=== PATIENT | female | born 1980 | race Caucasian/White ===

== ENCOUNTER 2017-07-27 20:19 | Day surgery (SDC) | payer BC, OTHER ==
[2017-07-27] MEDS ORDERED: Sodium Chloride 0.9% 1,000 ML IV ONE (20:41)
[2017-07-27] MEDS ORDERED: Ondansetron 4 MG/2 ML SDV IVPUSH ONE (20:41)
--- NOTE | 2017-07-27 20:46 | EDM.PDOC ---
ED HPI GENERAL MEDICAL PROBLEM - General Chief Complaint: Abdominal Pain Stated Complaint: PT HAS BODY PAIN Time Seen by Provider: 07/27/17 20:40 Source of Information: Reports: Patient History Limitations: Reports: No Limitations - History of Present Illness INITIAL COMMENTS - FREE TEXT/NARRATIVE: HISTORY AND PHYSICAL: History of present illness: Patient is a 36-year-old female who presents to the emergency room with complaints of nausea, vomiting, abdominal pain, chest pain and shortness of breath since last night. States the symptoms have gradually got worse since last night. Denies any recent illness Review of systems: As per history of present illness and below otherwise all systems reviewed and negative. Past medical history: As per history of present illness and as reviewed below otherwise noncontributory. Surgical history: As per history of present illness and as reviewed below otherwise noncontributory. Social history: No reported history of drug or alcohol abuse. Family history: As per history of present illness and as reviewed below otherwise noncontributory. Physical exam: Gen.: Developed and well-nourished 36-year-old female. Alert and oriented. HEENT: Atraumatic, normocephalic, pupils reactive, negative for conjunctival pallor or scleral icterus, mucous membranes moist, throat clear, neck supple, nontender, trachea midline. Lungs: Clear to auscultation, breath sounds equal bilaterally, chest nontender. Heart: S1S2, regular rate and rhythm Abdomen: Soft, nondistended, nontender. Negative for masses or hepatosplenomegaly. Negative for costovertebral tenderness. Pelvis: Stable nontender. Genitourinary: Deferred. Rectal: Deferred. Extremities: Atraumatic, negative for cords or calf pain. Neurovascular unremarkable. Neuro: Awake, alert, oriented. Cranial nerves II through XII unremarkable. Cerebellum unremarkable. Motor and sensory unremarkable throughout. Exam nonfocal. Patient has a white count of 15, and will order abdominal/pelvis CT at this time. Patient states that her abdominal pain has improved since receiving her IV fluids and Zofran. Her blood pressure is in the 90s over 50s after receiving an IV bolus. She tells the nursing staff that this is normal for her and has happened in the past. Part was given to Dr. Mondragon at [id number]. Dr Shields was consulted and he knows about the case. He states he is on his way in to evaluate the patient. The patient was made aware of her appendicitis with impending surgery. Patient states her pain as a 1 out of 10 at this time. She declines any additional pain medication. He is aware to remain nothing by mouth. Diagnostics: CBC, CMP, amylase, lipase, troponin, EKG, UA, urine Therapeutics: IV fluid, Zofran Impression: Abdominal pain Appendicitis Plan: Under the care of Definitive disposition and diagnosis as appropriate pending reevaluation and review of above. Duration: Day(s): Location: Reports: Abdomen chest Pain Score (Numeric/FACES): 7 abdomen Pain Score (Numeric/FACES): 7 - Related Data Allergies Allergy/AdvReac Type Severity Reaction Status Date / Time No Known Allergies Allergy Verified 07/27/17 20:31 Home Meds: Home Meds . 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 ED EXAM, GI/ABD - Physical Exam Exam: See Below (See dictation) Course - Vital Signs Last Recorded V/S: Last Vital Signs Temp 37.4 C 07/27/17 20:19 Pulse 73 07/27/17 22:01 Resp 16 07/27/17 22:00 BP 92/50 L 07/27/17 22:01 Pulse Ox 100 07/27/17 22:00 - Orders/Labs/Meds Orders: Active Orders 24 hr Category Date Time Status EKG Documentation Completion [RC] STAT Care 07/27/17 20:41 Active Abdomen Pelvis w Cont [CT] Stat Exams 07/27/17 21:46 Ordered Chest 1V Frontal [CR] Stat Exams 07/27/17 20:46 Taken Sodium Chloride 0.9% [Normal Saline] 1,000 ml Med 07/27/17 22:00 Active IV ASDIRECTED Medication Orders Sodium Chloride (Normal Saline) 1,000 mls @ 200 mls/hr IV ASDIRECTED KHALIF Last Infusion: 07/27/17 22:01 Dose: 999 mls/hr Admin: 07/27/17 21:50 Dose: 200 mls/hr Labs: Laboratory Tests 07/27/17 07/27/17 07/27/17 Range/Units 20:40 20:40 21:20 WBC 15.09 H (4.0-11.0) K/uL RBC 4.82 (4.30-5.90) M/uL Hgb 12.7 (12.0-16.0) g/dL Hct 38.4 (36.0-46.0) % MCV 79.7 L (80.0-98.0) fL MCH 26.3 L (27.0-32.0) pg MCHC 33.1 (31.0-37.0) g/dL RDW Std Deviation 39.2 (28.0-62.0) fl RDW Coeff of Ever 14 (11.0-15.0) % Plt Count 391 (150-400) K/uL MPV 9.70 (7.40-12.00) fL Neut % (Auto) 82.2 H (48.0-80.0) % Lymph % (Auto) 12.3 L (16.0-40.0) % [place] % (Auto) 5.2 (0.0-15.0) % Eos % (Auto) 0.1 (0.0-7.0) % Baso % (Auto) 0.2 (0.0-1.5) % Neut # (Auto) 12.4 H (1.4-5.7) K/uL Lymph # (Auto) 1.9 (0.6-2.4) K/uL [place] # (Auto) 0.8 (0.0-0.8) K/uL Eos # (Auto) 0.0 (0.0-0.7) K/uL Baso # (Auto) 0.0 (0.0-0.1) K/uL Nucleated RBC % 0.0 /100WBC Nucleated RBCs # 0 K/uL Sodium 138 (136-146) mmol/L Potassium 3.6 (3.5-5.1) mmol/L Chloride 105 (98-110) mmol/L Carbon Dioxide 21 (21-31) mmol/L BUN 8 (6.0-23.0) mg/dL Creatinine 0.8 (0.6-1.5) mg/dL Est Cr Clr Drug Dosing TNP Estimated GFR (MDRD) > 60.0 ml/min Glucose 126 H (60-110) mg/dL Calcium 10.3 (8.8-10.8) mg/dL Total Bilirubin 0.6 (0.1-1.5) mg/dL AST 19 (5-40) IU/L ALT 19 (8-54) IU/L Alkaline Phosphatase 84 (40-150) Troponin I < 0.10 (0.0-0.29) NG/ML Total Protein 8.5 H (6.0-8.0) g/dL Albumin 4.3 (3.5-5.0) g/dL Globulin 4.2 H (2.0-3.5) g/dL Albumin/Globulin Ratio 1.0 L (1.3-2.8) Amylase 84 (10-90) U/L Lipase 54 (7-80) U/L Urine Color Urine Appearance Urine pH (5.0-8.0) Ur Specific [place] (1.001-1.035) Urine Protein (NEGATIVE) mg/dL Urine Glucose (UA) (NEGATIVE) mg/dL Urine Ketones (NEGATIVE) mg/dL Urine Occult Blood (NEGATIVE) Urine Nitrite (NEGATIVE) Urine Bilirubin (NEGATIVE) Urine Urobilinogen (<2.0) EU/dL Ur Leukocyte Esterase (NEGATIVE) Urine RBC (0-2/HPF) Urine WBC (0-5/HPF) Ur Epithelial Cells (NONE-FEW) Urine Bacteria (NEGATIVE) Urine HCG, Qual NEGATIVE (NEGATIVE) 07/27/17 Range/Units 21:20 WBC (4.0-11.0) K/uL RBC (4.30-5.90) M/uL Hgb (12.0-16.0) g/dL Hct (36.0-46.0) % MCV (80.0-98.0) fL MCH (27.0-32.0) pg MCHC (31.0-37.0) g/dL RDW Std Deviation (28.0-62.0) fl RDW Coeff of Ever (11.0-15.0) % Plt Count (150-400) K/uL MPV (7.40-12.00) fL Neut % (Auto) (48.0-80.0) % Lymph % (Auto) (16.0-40.0) % Bath % (Auto) (0.0-15.0) % Eos % (Auto) (0.0-7.0) % Baso % (Auto) (0.0-1.5) % Neut # (Auto) (1.4-5.7) K/uL Lymph # (Auto) (0.6-2.4) K/uL [place] # (Auto) (0.0-0.8) K/uL Eos # (Auto) (0.0-0.7) K/uL Baso # (Auto) (0.0-0.1) K/uL Nucleated RBC % /100WBC Nucleated RBCs # K/uL Sodium (136-146) mmol/L Potassium (3.5-5.1) mmol/L Chloride (98-110) mmol/L Carbon Dioxide (21-31) mmol/L BUN (6.0-23.0) mg/dL Creatinine (0.6-1.5) mg/dL Est Cr Clr Drug Dosing Estimated GFR (MDRD) ml/min Glucose (60-110) mg/dL Calcium (8.8-10.8) mg/dL Total Bilirubin (0.1-1.5) mg/dL AST (5-40) IU/L ALT (8-54) IU/L Alkaline Phosphatase (40-150) Troponin I (0.0-0.29) NG/ML Total Protein (6.0-8.0) g/dL Albumin (3.5-5.0) g/dL Globulin (2.0-3.5) g/dL Albumin/Globulin Ratio (1.3-2.8) Amylase (10-90) U/L Lipase (7-80) U/L Urine Color YELLOW Urine Appearance CLEAR Urine pH 8.5 H (5.0-8.0) Ur Specific [place] 1.020 (1.001-1.035) Urine Protein NEGATIVE (NEGATIVE) mg/dL Urine Glucose (UA) NEGATIVE (NEGATIVE) mg/dL Urine Ketones >=80 (NEGATIVE) mg/dL Urine Occult Blood NEGATIVE (NEGATIVE) Urine Nitrite NEGATIVE (NEGATIVE) Urine Bilirubin NEGATIVE (NEGATIVE) Urine Urobilinogen 0.2 (<2.0) EU/dL Ur Leukocyte Esterase NEGATIVE (NEGATIVE) Urine RBC 0-2 (0-2/HPF) Urine WBC 1-2 (0-5/HPF) Ur Epithelial Cells FEW (NONE-FEW) Urine Bacteria FEW (NEGATIVE) Urine HCG, Qual (NEGATIVE) Meds: Medications Generic Name Dose Route Start Last Admin Trade Name Freq PRN Reason Stop Dose Admin Sodium Chloride 1,000 mls @ 200 mls/hr 07/27/17 22:00 07/27/17 22:01 Normal Saline IV 999 mls/hr ASDIRECTED KHALIF Infusion Discontinued Medications Generic Name Dose Route Start Last Admin Trade Name Freq PRN Reason Stop Dose Admin Sodium Chloride 1,000 mls @ 999 mls/hr 07/27/17 20:41 07/27/17 20:48 Normal Saline IV 07/27/17 21:41 999 mls/hr STAT ONE Administration Iopamidol 100 ml 07/27/17 22:23 07/27/17 22:23 Isovue Multipack-370 (76%) IVPUSH 07/27/17 22:24 100 ml ONETIME STA Administration Ondansetron HCl 4 mg 07/27/17 20:41 07/27/17 20:53 Zofran IVPUSH 07/27/17 20:42 4 mg ONETIME ONE Administration Departure - Departure Time of Disposition: 22:50 Disposition: Still A Patient 30 Clinical Impression: Appendicitis Qualifiers: Appendicitis type: acute appendicitis Acute appendicitis type: unspecified acute appendicitis type Qualified Code(s): K35.80 - Unspecified acute appendicitis - Discharge Information Referrals: PCP,None [Primary Care Provider] - Forms: ED Department Discharge - My Orders Last 24 Hours: My Active Orders 07/27/17 20:41 EKG Documentation Completion [RC] STAT 07/27/17 20:46 Chest 1V Frontal [CR] Stat 07/27/17 21:46 Abdomen Pelvis w Cont [CT] Stat 07/27/17 22:00 Sodium Chloride 0.9% [Normal Saline] 1,000 ml IV ASDIRECTED - Assessment/Plan Last 24 Hours: My Active Orders 07/27/17 20:41 EKG Documentation Completion [RC] STAT 07/27/17 20:46 Chest 1V Frontal [CR] Stat 07/27/17 21:46 Abdomen Pelvis w Cont [CT] Stat 07/27/17 22:00 Sodium Chloride 0.9% [Normal Saline] 1,000 ml IV ASDIRECTED
[2017-07-27 21:13] LABS: CHLORIDE,CL 105 mmol/L (98-110); SODIUM,NA 138 mmol/L (136-146)
[2017-07-27] MEDS ORDERED: Sodium Chloride 0.9% 1,000 ML IV SCH (22:00)
[2017-07-27] MEDS ORDERED: Iopamidol 755 MG/ML 500 ML Multipack Bottle IVPUSH STA (22:23)
[2017-07-27] MEDS ORDERED: cefOXitin 2 GM in Premix Bag 1 BAG IV ONE (23:30)
[2017-07-27] MEDS ORDERED: Lactated Ringers 1,000 ML IV SCH (23:30)
[2017-07-27] MEDS ORDERED: cefOXitin 0 ML ONE (23:42)
--- NOTE | 2017-07-27 23:59 | PCM.PREANE ---
Preanesthetic Assessment - Anesthesia/Transfusion/Family Hx Anesthesia History: No Prior Anesthesia - Review of Systems General: No Symptoms Pulmonary: No Symptoms Cardiovascular: No Symptoms Gastrointestinal: No Symptoms Neurological: No Symptoms Other: Reports: None - Physical Assessment Pulse: 76 O2 Sat by Pulse Oximetry: 100 Respiratory Rate: 16 Blood Pressure: 92/48 Vital Signs: Last Vital Signs Temp 99.3 F 07/27/17 20:19 Pulse 73 07/27/17 22:01 Resp 16 07/27/17 22:00 BP 92/50 L 07/27/17 22:01 Pulse Ox 100 07/27/17 22:00 Height: 5 ft 8 in Weight: 64 kg ASA Class: 1E Mental Status: Alert & Oriented x3 Airway Class: Mallampati = 2 Dentition: Reports: Normal Dentition Thyro-Mental Finger Breadths: 3 Mouth Opening Finger Breadths: 3 ROM/Head Extension: Full Lungs: Clear to Auscultation, Normal Respiratory Effort Cardiovascular: Regular Rate, Regular Rhythm - Lab Values: Laboratory Last Values WBC 15.09 K/uL (4.0-11.0) H 07/27/17 20:40 RBC 4.82 M/uL (4.30-5.90) 07/27/17 20:40 Hgb 12.7 g/dL (12.0-16.0) 07/27/17 20:40 Hct 38.4 % (36.0-46.0) 07/27/17 20:40 MCV 79.7 fL (80.0-98.0) L 07/27/17 20:40 MCH 26.3 pg (27.0-32.0) L 07/27/17 20:40 MCHC 33.1 g/dL (31.0-37.0) 07/27/17 20:40 RDW Std Deviation 39.2 fl (28.0-62.0) 07/27/17 20:40 RDW Coeff of Ever 14 % (11.0-15.0) 07/27/17 20:40 Plt Count 391 K/uL (150-400) 07/27/17 20:40 MPV 9.70 fL (7.40-12.00) 07/27/17 20:40 Neut % (Auto) 82.2 % (48.0-80.0) H 07/27/17 20:40 Lymph % (Auto) 12.3 % (16.0-40.0) L 07/27/17 20:40 [place] % (Auto) 5.2 % (0.0-15.0) 07/27/17 20:40 Eos % (Auto) 0.1 % (0.0-7.0) 07/27/17 20:40 Baso % (Auto) 0.2 % (0.0-1.5) 07/27/17 20:40 Neut # (Auto) 12.4 K/uL (1.4-5.7) H 07/27/17 20:40 Lymph # (Auto) 1.9 K/uL (0.6-2.4) 07/27/17 20:40 [place] # (Auto) 0.8 K/uL (0.0-0.8) 07/27/17 20:40 Eos # (Auto) 0.0 K/uL (0.0-0.7) 07/27/17 20:40 Baso # (Auto) 0.0 K/uL (0.0-0.1) 07/27/17 20:40 Nucleated RBC % 0.0 /100WBC 07/27/17 20:40 Nucleated RBCs # 0 K/uL 07/27/17 20:40 Sodium 138 mmol/L (136-146) 07/27/17 20:40 Potassium 3.6 mmol/L (3.5-5.1) 07/27/17 20:40 Chloride 105 mmol/L (98-110) 07/27/17 20:40 Carbon Dioxide 21 mmol/L (21-31) 07/27/17 20:40 BUN 8 mg/dL (6.0-23.0) 07/27/17 20:40 Creatinine 0.8 mg/dL (0.6-1.5) 07/27/17 20:40 Est Cr Clr Drug Dosing TNP 07/27/17 20:40 Estimated GFR (MDRD) > 60.0 ml/min 07/27/17 20:40 Glucose 126 mg/dL (60-110) H 07/27/17 20:40 Calcium 10.3 mg/dL (8.8-10.8) 07/27/17 20:40 Total Bilirubin 0.6 mg/dL (0.1-1.5) 07/27/17 20:40 AST 19 IU/L (5-40) 07/27/17 20:40 ALT 19 IU/L (8-54) 07/27/17 20:40 Alkaline Phosphatase 84 (40-150) 07/27/17 20:40 Troponin I < 0.10 NG/ML (0.0-0.29) 07/27/17 20:40 Total Protein 8.5 g/dL (6.0-8.0) H 07/27/17 20:40 Albumin 4.3 g/dL (3.5-5.0) 07/27/17 20:40 Globulin 4.2 g/dL (2.0-3.5) H 07/27/17 20:40 Albumin/Globulin Ratio 1.0 (1.3-2.8) L 07/27/17 20:40 Amylase 84 U/L (10-90) 07/27/17 20:40 Lipase 54 U/L (7-80) 07/27/17 20:40 Urine Color YELLOW 07/27/17 21:20 Urine Appearance CLEAR 07/27/17 21:20 Urine pH 8.5 (5.0-8.0) H 07/27/17 21:20 Ur Specific [place] 1.020 (1.001-1.035) 07/27/17 21:20 Urine Protein NEGATIVE mg/dL (NEGATIVE) 07/27/17 21:20 Urine Glucose (UA) NEGATIVE mg/dL (NEGATIVE) 07/27/17 21:20 Urine Ketones >=80 mg/dL (NEGATIVE) 07/27/17 21:20 Urine Occult Blood NEGATIVE (NEGATIVE) 07/27/17 21:20 Urine Nitrite NEGATIVE (NEGATIVE) 07/27/17 21:20 Urine Bilirubin NEGATIVE (NEGATIVE) 07/27/17 21:20 Urine Urobilinogen 0.2 EU/dL (<2.0) 07/27/17 21:20 Ur Leukocyte Esterase NEGATIVE (NEGATIVE) 07/27/17 21:20 Urine RBC 0-2 (0-2/HPF) 07/27/17 21:20 Urine WBC 1-2 (0-5/HPF) 07/27/17 21:20 Ur Epithelial Cells FEW (NONE-FEW) 07/27/17 21:20 Urine Bacteria FEW (NEGATIVE) 07/27/17 21:20 Urine HCG, Qual NEGATIVE (NEGATIVE) 07/27/17 21:20 - Allergies Allergies/Adverse Reactions: Allergies Allergy/AdvReac Type Severity Reaction Status Date / Time No Known Allergies Allergy Verified 07/27/17 20:31 - Acknowledgements Anesthesia Type Planned: General Anesthesia Pt an Appropriate Candidate for the Planned Anesthesia: Yes Alternatives and Risks of Anesthesia Discussed w Pt/Guardian: Yes Pt/Guardian Understands and Agrees with Anesthesia Plan: Yes PreAnesthesia Questionnaire - Past Health History Medical/Surgical History: Denies Medical/Surgical History HEENT History: Reports: None Cardiovascular History: Reports: Blood Clots/VTE/DVT Respiratory History: Reports: None Gastrointestinal History: Reports: Other (See Below) (Acute Appendicitis) Genitourinary History: Reports: None 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 [No Known Home Meds] 07/27/17 [History] - CURRENT (IN HOUSE) MEDS Current Meds: Current Medications Sodium Chloride (Normal Saline) 1,000 mls @ 200 mls/hr IV ASDIRECTED [facility] Last Infusion: 07/27/17 22:01 Dose: 999 mls/hr Cefoxitin Sodium 2 gm/ Premix 50 mls @ 100 mls/hr IV ONETIME ONE Stop: 07/27/17 23:59 Last Admin: 07/27/17 23:37 Dose: 100 mls/hr Lactated Ringer's (Ringers, Lactated) 1,000 mls @ 150 mls/hr IV ASDIRECTED [facility] Last Admin: 07/27/17 23:36 Dose: 150 mls/hr Discontinued Medications Sodium Chloride (Normal Saline) 1,000 mls @ 999 mls/hr IV STAT ONE Stop: 07/27/17 21:41 Last Admin: 07/27/17 20:48 Dose: 999 mls/hr Cefoxitin Sodium (Mefoxin In Dextrose,Iso-Osm 2 Gm/50 Ml) Confirm Administered Dose 50 mls @ as directed .ROUTE .STK-MED ONE Stop: 07/27/17 23:43 Iopamidol (Isovue Multipack-370 (76%)) 100 ml IVPUSH ONETIME STA Stop: 07/27/17 22:24 Last Admin: 07/27/17 22:23 Dose: 100 ml Ondansetron HCl (Zofran) 4 mg IVPUSH ONETIME ONE Stop: 07/27/17 20:42 Last Admin: 07/27/17 20:53 Dose: 4 mg
--- NOTE | 2017-07-27 23:59 | PCM.SN ---
- Free Text/Narrative Note: pt seen, chart reviewed, acute appendicitis, possible perf, will proceed with appendectomy, lap vs open, r/b dw pt, included but not limited to, bleeding/ infection/damage to nearby organs; pt concurs and proceed with surgery; h/p dictated [id number]
[2017-07-28] MEDS ORDERED: Rocuronium 10 MG/ML 10 ML Syringe ONE (00:02)
[2017-07-28] MEDS ORDERED: Succinylcholine/Normal Saline 200 MG/10 ML Syringe ONE (00:02)
[2017-07-28] MEDS ORDERED: fentaNYL 250 MCG/5 ML SDV ONE (00:02)
[2017-07-28] MEDS ORDERED: Lidocaine 2% 5 ML SDV ONE (00:02)
[2017-07-28] MEDS ORDERED: Ondansetron 4 MG/2 ML SDV ONE (00:02)
[2017-07-28] MEDS ORDERED: Midazolam 1 MG/ML 2 ML SDV ONE (00:02)
[2017-07-28] MEDS ORDERED: Propofol 200 MG/20 ML SDV ONE (00:02)
[2017-07-28] MEDS ORDERED: Bupivacaine 25%/EPINEPHrine/PF 30 ML ONE (00:03)
[2017-07-28] MEDS ORDERED: Water For Injection, Sterile 20 ML ONE (00:04)
[2017-07-28] MEDS ORDERED: ePHEDrine 50 MG/ML SDV ONE (00:04)
[2017-07-28] MEDS ORDERED: Phenylephrine/Normal Saline 100 MCG/ML 10 ML Syringe ONE (00:40)
--- NOTE | 2017-07-28 00:50 | HP ---
DATE OF : 1980 PRIMARY CARE PHYSICIAN: None PCP This is a consult from ER doctor, León Mcfarland. CONCERNING QUESTION: Acute appendicitis. HISTORY OF PRESENT ILLNESS: The patient is a 36-year-old lady, recently came into town to [place] three months ago. Seen in the emergency room complaining of 36 hours of acute onset of periumbilical pain, subsequently migrated to the right lower quadrant, pain intensified and patient also developed nausea and vomiting, sought help in the emergency room. Workup included CAT scan, revealed appendix of 18 mm in size and consistent with acute appendicitis. At the time of the CAT scan, does not seem to have perforation of abscess. The patient was seen shortly after and noted to be hypotensive, as well as on interview half an hour later, the patient remarked she has no pain, the pain is all gone. The patient remarked that the night prior episode, the pain was very bad, and upon coming to the emergency room, expressed when the car stopped in front of the traffic light, it hurt more. PAST MEDICAL HISTORY: Consistent with no diabetes, CO, CVA, hypertension. PAST SURGICAL HISTORY: Normal vaginal delivery x1 and IVF, in vitro fertilization procedure x1. ALLERGIES: Please refer nursing for details. MEDICATION: Please refer nursing for details. FAMILY HISTORY: Noncontributory. SOCIAL HISTORY: Patient denied tobacco or alcohol abuse. REVIEW OF SYSTEMS: Same as history of present illness. PHYSICAL EXAMINATION: GENERAL: A very pleasant lady and continued to smile to the doctor, and also continued to remark she has no pain now. HEENT: Normocephalic, atraumatic. Sclerae anicteric. LUNGS: Clear to auscultation. HEART: Regular rate and rhythm. ABDOMEN: Soft. Nondistended. Exquisite tenderness at McBurney's point, asked patient to jump up and down, it hurt. LABORATORY DATA: Upon consultation, white count 15, H and H 13 and 38, and platelet 390. BUN and creatinine are 8 and 0.8 and glucose is 126. Albumin is 4.3, amylase and lipase are normal. UA, no signs or symptoms of UTI and beta HCG is negative. EKG is sinus rhythm. CAT scan preliminary report suggests appendix with dilatation of 18 mm and thickened wall as well as stranding dirty fat in the surrounding consistent with acute appendicitis. IMPRESSION: Acute appendicitis with pain suddenly disappeared half an hour ago concerning possible ruptured by now. The patient's last meal was lunchtime, but she said she vomited all of them. Workup and CAT scan and history and physical consistent with acute appendicitis. The patient would benefit from timely surgical intervention. We will proceed with laparoscopic, possible open appendectomy. Risks and benefits discussed with the patient including but not limited to, bleeding, infection, and damage to nearby organ and depends on the surgery and there is a possibility of open and also insert a drain if it is appropriate. The patient concurs to proceed with surgery and will start with IV fluid as well as give Mefoxin 2 g now and proceed with surgical intervention. As always, thank you for the kind referral. DEANNA / RAMOS /[id number]
[2017-07-28] MEDS ORDERED: fentaNYL 100 MCG/2 ML SDV ONE (00:57)
[2017-07-28] MEDS ORDERED: Neostigmine Methylsulfate 1 MG/ML 5 ML Syringe ONE (01:30)
[2017-07-28] MEDS ORDERED: HYDROmorphone 2 MG/ML Syringe ONE (01:30)
[2017-07-28] MEDS ORDERED: fentaNYL 100 MCG/2 ML SDV IVPUSH PRN (01:37)
[2017-07-28] MEDS ORDERED: Octyl 2-Cyanoacrylate 1 Tube ONE ×2 (01:41→01:46)
[2017-07-28] MEDS ORDERED: Ondansetron 4 MG/2 ML SDV IVPUSH PRN (01:58)
[2017-07-28] MEDS ORDERED: Morphine 10 MG/ML Syringe IV PRN (01:59)
[2017-07-28] MEDS ORDERED: Lactated Ringers 1,000 ML IV SCH (02:00)
--- NOTE | 2017-07-28 02:09 | PCM.OPNOTE ---
- General Post-Op/Procedure Note Date of Surgery/Procedure: 07/28/17 Operative Procedure(s): lap appendectomy Findings: appendix very dilated, hyperemic, cw acute appendicitis, no gross perf; [id number] Pre Op Diagnosis: acute appy Post-Op Diagnosis: Same Anesthesia Technique: General ET Tube Primary Surgeon: Fabio Shields Pathology: sent Complications: None Condition: Stable
--- NOTE | 2017-07-28 02:28 | OR ---
SURGEON: Fabio Shields MD DATE OF PROCEDURE: 07/28/2017 PREOPERATIVE DIAGNOSIS: Acute appendicitis. POSTOPERATIVE DIAGNOSIS: Acute appendicitis. PROCEDURE PERFORMED: Laparoscopic appendectomy. COMPLICATIONS: None. FINDING: The appendix is very very dilated and as said in the CAT scan is 18 mm and hyperemic and consistent with acute appendicitis. Gross perforation is not observed. DESCRIPTION OF PROCEDURE: The patient was taken to the operating room and placed in the supine position. Following induction of general endotracheal anesthesia, the patient's abdomen was prepped and draped in the sterile fashion. A time-out has been called. The patient was identified. The procedure was identified. The antibiotics were identified. The procedure then proceeded. The abdomen was prepped and draped in a standard fashion. After assessment of appropriate landmarks, a 12 millimeter trocar was inserted supraumbilically using Optiview and pneumoperitoneum was then achieved. This was followed with placement of 5 millimeter port in the right upper quadrant and another 5 millimeter port infraumbilically. The camera was inserted supraumbilical site and two laparoscopic Boscobel retractors were then inserted through the other two sites. Following the cecum, the appendix was located. The appendix was then lifted up, and using a GI stapler the appendix was amputated at the base. And using the GI stapler, the mesoappendix was then amputated. The appendix was retrieved by an endoscopic bag and sent for pathologist. This was then followed by re-insertion of the camera to examine the staple line, and hemostasis. The trocars were then removed. The umbilical site was closed with 2-0 Vicryl deep stitch and 4 -0 Vicryl and Dermabond; the other 2 5 mm port sites were closed with 4-0 Vicryl and Dermabond. The patient was then awakened, extubated, and transferred to the recovery room in hemodynamically stable condition. Prior to closing, sponge count and instrument count was correct. Surgicel was inserted to aid to assist in the hemostasis and also the patient may have a small umbilical hernia which we do not address on emergency surgery. We will discuss that one on postop when the patient back to the office. Again, gross perforation is not observed. Dr. Shields was present throughout the whole procedure. INTRAOPERATIVE FINDINGS: As dictated above. As always, thank you for the kind referral. DEANNA / RAMOS /[id number]
--- NOTE | 2017-07-28 02:33 | PCM.POSTAN ---
POST ANESTHESIA ASSESSMENT - MENTAL STATUS Mental Status: Alert, Oriented - VITAL SIGNS Pulse Rate: 83 SaO2: 95 (RA) Resp Rate: 16 Blood Pressure: 100/66 - RESPIRATORY Respiratory Status: Respiratory Rate WNL, Airway Patent, O2 Saturation Stable - CARDIOVASCULAR CV Status: Pulse Rate WNL, Blood Pressure Stable - GASTROINTESTINAL GI Status: No Symptoms - POST OP HYDRATION Hydration Status: Adequate & Stable
[2017-07-28] MEDS ORDERED: Morphine 2 MG/ML Syringe IV PRN (02:59)
[2017-07-28] MEDS: Acetaminophen/oxyCODONE 325-5 MG Tab PO PRN ×2 (05:29→09:30)
--- NOTE | 2017-07-28 08:35 | PCM48HPAN ---
Post Anesthesia Note - EVALUATION WITHIN 48HRS OF ANESTHETIC Vital Signs in Normal Range: Yes Patient Participated in Evaluation: Yes Respiratory Function Stable: Yes Airway Patent: Yes Cardiovascular Function Stable: Yes Hydration Status Stable: Yes Pain Control Satisfactory: Yes Nausea and Vomiting Control Satisfactory: Yes Mental Status Recovered: Yes
--- NOTE | 2017-07-28 10:30 | CT ---
EXAM DATE: 07/27/17 PATIENT'S AGE: 36 Patient: FREDA NEWSOME Facility: [place], [place] Site . Site : 1980 Study: CT Abdomen/Pelvis [id number]/20/2017 10:29:39 PM Ordering Physician: Doctor Fowler Final Report: INDICATION: Abdominal pain and leukocytosis. CT ABDOMEN AND PELVIS WITH CONTRAST TECHNIQUE: Multidetector CT imaging was performed through the abdomen and pelvis following intravenous contrast administration using 100 mL Isovue 370. Coronal and sagittal reconstructions were generated. COMPARISON: None. FINDINGS: Lower chest: Lung bases are clear. Liver: Within normal limits. Gallbladder and bile ducts: No gallbladder wall thickening or calcified gallstones. No biliary dilation identified. Pancreas: Unremarkable. Spleen: Normal. Adrenals: No nodules or masses. Kidneys, ureters, and urinary bladder: No renal masses or hydronephrosis. No bladder mass or definite wall thickening. Gastrointestinal tract: Normal caliber small bowel without obstruction or wall thickening. The appendix is abnormally dilated to a diameter of up to 18 millimeters and has diffuse wall thickening with periappendiceal stranding, consistent with appendicitis. There is associated mild wall thickening of the adjacent cecum. The remainder of the colon is unremarkable. Vascular structures: Normal for age. Peritoneum: Minimal free fluid in the low pelvis. No loculated collection suggestive of abscess. No free air. Lymph nodes: No pathologically enlarged nodes identified. Reproductive organs: No pelvic masses. Bones: Normal for age. IMPRESSION: Acute appendicitis. No evidence of perforation or abscess. Results were called to Dr. Freedman at 10:40 p.m. on 07/27/2017. AGUILA REYNOLDS MD [employer] [facility] Dictated by Gamal Reynolds MD @ 07/27/2017 10:38:53 PM Dictated by: Gamal Reynolds MD @ 07/27/2017 22:39:14 (Electronic Signature) Report Signed by Proxy. [facility]ITAL[facility]uk[facility]
--- NOTE | 2017-07-28 10:31 | CR ---
EXAM DATE: 07/27/17 PATIENT'S AGE: 36 Patient: FREDA NEWSOME Facility: [place], [place] Site . Site : 1980 Study: XRay Chest [id number]/20/2017 9:57:10 PM Ordering Physician: Doctor Fowler Final Report: INDICATION: Chest pain, shortness of breath, vomiting TECHNIQUE: Chest radiograph 1 view COMPARISON: None FINDINGS: Cardiovascular and mediastinum: The cardiac silhouette is normal in appearance and size. Mediastinum is within normal limits. Lungs and pleural spaces: Both lungs are unremarkable in appearance. No sign of pleural effusion. No pneumothorax is seen. Bones and soft tissues: No significant findings. IMPRESSION: 1. No acute cardiopulmonary disease seen. Dictated by: Jarad Holliday MD @ 07/27/2017 22:05:31 (Electronic Signature) Report Signed by Proxy. PEPPER
== END 2017-07-28 12:30 | disposition home or self-care (01) ==
LOC: MW.ED 20:19 → MW.SDS 23:47 → MW.ICU 07-28 01:57 → MW.SDS 07-28 12:30
PROVIDERS: ATTEND Surgery
DX: K35.80 Unspecified acute appendicitis (principal)
CPT/HCPCS: 44970; 71010; 74177; 80053; 81001; 81025; 82150; 83690; 84484; 85025; 88304; 93005; 96361; 96365; 96375; 99285; A9270; J1170; J2250; J2270; J2405; J3010; J7040; J7120; Q9967; 00840; 99284; J2704

== ENCOUNTER 2017-08-02 00:06 | Emergency (ER) | payer BC, OTHER ==
--- NOTE | 2017-08-02 00:51 | EDM.PDOC ---
ED HPI GENERAL MEDICAL PROBLEM - General Chief Complaint: General Stated Complaint: HAD SURGERY/DISCHARGE/PAIN REDNESS ABDOMEN Time Seen by Provider: 08/02/17 00:50 - History of Present Illness INITIAL COMMENTS - FREE TEXT/NARRATIVE: 36 yo fm s/p appendectomy on 07/28/17 presents to ED with concern of drainage at her umbilicus. The drainage occurred once yesterday then resolved. It was pink colored. Then today the drainage recurred but there was more of it. It is now occurring intermittently. Fluid was pink when it started but is now more clear. She denies any associated fever, chills, night sweats, nausea, vomiting, abdominal pain, constipation or diarrhea. She is also concerned of area of redness just above her umbilicus. The region was present following her surgery but it has definitely grown in size the past 2 days. THe surgery was done by Dr. Shields. She has a f/u already scheduled with him this week on August 06, 2017. 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: Reports: Musculoskeletal History: Reports: None Neurological History: Reports: None Psychiatric History: Reports: None Endocrine/Metabolic History: Reports: None Hematologic History: Reports: None Immunologic History: Reports: None Oncologic (Cancer) History: Reports: None Dermatologic History: Reports: None - Infectious Disease History Infectious Disease History: Reports: None - Past Surgical History GI Surgical History: Reports: Appendectomy Social & Family History - Family History Family Medical History: Noncontributory - Tobacco Use Smoking Status *Q: Never Smoker - Recreational Drug Use Recreational Drug Use: No ED ROS GENERAL - Review of Systems Review Of Systems: See Below Constitutional: Reports: No Symptoms HEENT: Reports: No Symptoms Respiratory: Reports: No Symptoms Cardiovascular: Reports: No Symptoms Endocrine: Reports: No Symptoms GI/Abdominal: Reports: No Symptoms : Reports: No Symptoms Musculoskeletal: Reports: No Symptoms Skin: Reports: Wound (surgical wound at umbilius not completely closed. There is clear colored serous drainage persent. There is small circular region of erythema and induration just above the just above the umbilicus. ) Neurological: Reports: No Symptoms Psychiatric: Reports: No Symptoms Hematologic/Lymphatic: Reports: No Symptoms Immunologic: Reports: No Symptoms ED EXAM, GENERAL - Physical Exam Exam: See Below Exam Limited By: No Limitations General Appearance: Alert, WD/WN, No Apparent Distress Eye Exam: Bilateral Eye: PERRL Ears: Normal External Exam, Hearing Grossly Normal Nose: Normal Inspection, No Blood, Nasal Swelling Throat/Mouth: Normal Inspection, Normal Lips, Normal Teeth, Normal Gums, Normal Oropharynx, Normal Voice, No Airway Compromise, Inflammation Head: Atraumatic, Normocephalic Neck: Normal Inspection, Supple, Non-Tender, Full Range of Motion Respiratory/Chest: No Respiratory Distress, Lungs Clear, Normal Breath Sounds, No Accessory Muscle Use, Chest Non-Tender Cardiovascular: Normal Peripheral Pulses, Regular Rate, Rhythm, No Edema, No JVD GI/Abdominal: Normal Bowel Sounds, Soft, Non-Tender, No Organomegaly Back Exam: Normal Inspection Extremities: Normal Inspection, Normal Capillary Refill Neurological: Alert, Oriented, CN II-XII Intact, Normal Reflexes Psychiatric: Normal Affect, Normal Mood Skin Exam: Other (surgical wound at umbilius not completely closed. There is clear colored serous drainage persent. There is small circular region of erythema and induration just above the just above the umbilicus. ) Lymphatic: No Adenopathy Course - Vital Signs Last Recorded V/S: Last Vital Signs Temp 36.7 C 08/02/17 00:17 Pulse 75 08/02/17 02:23 Resp 16 08/02/17 02:23 BP 100/59 L 08/02/17 02:23 Pulse Ox 98 08/02/17 02:23 - Orders/Labs/Meds Orders: Active Orders 24 hr Category Date Time Status CULTURE BODY FLUID + SMEAR [RM] Stat Lab 08/02/17 01:15 Received Labs: Laboratory Tests 08/02/17 Range/Units 01:10 WBC 8.60 (4.0-11.0) K/uL RBC 4.37 (4.30-5.90) M/uL Hgb 11.2 L (12.0-16.0) g/dL Hct 35.2 L (36.0-46.0) % MCV 80.5 (80.0-98.0) fL MCH 25.6 L (27.0-32.0) pg MCHC 31.8 (31.0-37.0) g/dL RDW Std Deviation 38.0 (28.0-62.0) fl RDW Coeff of Ever 13 (11.0-15.0) % Plt Count 456 H (150-400) K/uL MPV 9.30 (7.40-12.00) fL Neut % (Auto) 57.6 (48.0-80.0) % Lymph % (Auto) 31.2 (16.0-40.0) % Steele % (Auto) 9.2 (0.0-15.0) % Eos % (Auto) 1.5 (0.0-7.0) % Baso % (Auto) 0.5 (0.0-1.5) % Neut # (Auto) 5.0 (1.4-5.7) K/uL Lymph # (Auto) 2.7 H (0.6-2.4) K/uL Steele # (Auto) 0.8 (0.0-0.8) K/uL Eos # (Auto) 0.1 (0.0-0.7) K/uL Baso # (Auto) 0.0 (0.0-0.1) K/uL Meds: Medications Discontinued Medications Generic Name Dose Route Start Last Admin Trade Name Goldy PRN Reason Stop Dose Admin Trimethoprim/Sulfamethoxazole 1 tab 08/02/17 02:00 08/02/17 02:11 Septra Ds PO 08/02/17 02:01 1 tab ONETIME ONE Administration Departure - Departure Time of Disposition: 02:00 Disposition: Home, Self-Care 01 Preliminary Cause of *Q: Cardiac Arrest Clinical Impression: Abdominal wall cellulitis, Abnormal surgical wound - Discharge Information Prescriptions: Sulfamethoxazole/Trimethoprim [Bactrim Ds Tablet] 1 each PO BID #20 tablet Instructions: Cellulitis, Adult, [place], Surgical Site Infections FAQs - BRUNO Referrals: Fabio Shields MD [Primary Care Provider] - Forms: ED Department Discharge Additional Instructions: The following information is given to patients seen in the emergency department who are being discharged to home. This information is to outline your options for follow-up care. We provide all patients seen in our emergency department with a follow-up referral. The need for follow-up, as well as the timing and circumstances, are variable depending upon the specifics of your emergency department visit. If you don't have a primary care physician on staff, we will provide you with a referral. We always advise you to contact your personal physician following an emergency department visit to inform them of the circumstance of the visit and for follow-up with them and/or the need for any referrals to a consulting specialist. The emergency department will also refer you to a specialist when appropriate. This referral assures that you have the opportunity for followup care with a specialist. All of these measure are taken in an effort to provide you with optimal care, which includes your followup. Under all circumstances we always encourage you to contact your private physician who remains a resource for coordinating your care. When calling for followup care, please make the office aware that this follow-up is from your recent emergency room visit. If for any reason you are refused follow-up, please contact the [facility] emergency department at and asked to speak to the emergency department charge nurse. - Problem List Review Problem List Initiated/Reviewed/Updated: Yes - My Orders Last 24 Hours: My Active Orders 08/02/17 01:15 CULTURE BODY FLUID + SMEAR [RM] Stat - Assessment/Plan Last 24 Hours: My Active Orders 08/02/17 01:15 CULTURE BODY FLUID + SMEAR [RM] Stat Plan: Diagnostics: CBC, Serous Fluid Culture Therapeutics: Bactrim DS single dose Assessment: 1. Abnormal Surgical Wound, within Umbilicus -draining clear colored serous fluid -no visible signs of infection 2. Cellulitis -small area just superior to umbilicus Plan: 1. Provided Education and reassurance 2. f/u with general surgery - patient already as appointment scheduled with Dr. Shields on 08/06/17 3. prescribed Bactrim DS PO BID for 10 days
[2017-08-02] MEDS ORDERED: Sulfamethoxazole/Trimethoprim 800-160 MG Tab PO ONE (02:00)
== END 2017-08-02 02:29 | disposition home or self-care (01) ==
LOC: MW.ED 00:06
DX: T81.4XXA Infection following a procedure, initial encounter (principal); L03.311 Cellulitis of abdominal wall
CPT/HCPCS: 36415; 85025; 87070; 87205; 99283; A9270; 87077; 87186; 99282